=== PATIENT | female | born 1950 | race Caucasian/White ===

== ENCOUNTER → 2016-10-14 | Outpatient (CLI) | payer MEDICARE ==
--- NOTE | 2016-10-15 10:11 | MM ---
Reason for exam: screening (asymptomatic). Last mammogram was performed 2 years and 7 months ago. History: Patient is postmenopausal and had first child at age 35. Physical Findings: A clinical breast exam by your physician is recommended on an annual basis and results should be correlated with mammographic findings. MG Screening Mammo w CAD Bilateral CC and MLO view(s) were taken. Prior study comparison: March 27, 2014, mammogram, performed at [facility]. May 19, 2005, mammogram, performed at [facility]. There are scattered fibroglandular densities. Focal asymmetry right anterior depth. ASSESSMENT: Incomplete: need additional imaging evaluation, BI-RAD 0 RECOMMENDATION: Special view mammogram of the right breast. If lesion persists on supplemental views, image directed ultrasound is recommended. [facility] will attempt to contact patient to return for supplemental views and ultrasound if indicated.
== END | disposition home or self-care (01) ==
LOC: RADMAMWWP 11:52
PROVIDERS: ATTEND Family Medicine
DX: Z12.31 Encounter for screening mammogram for malignant neoplasm of breast (principal)

== ENCOUNTER → 2016-10-16 | Outpatient (CLI) | payer MEDICARE ==
--- NOTE | 2016-10-19 07:27 | MM ---
Reason for exam: additional evaluation requested from abnormal screening. Last mammogram was performed less than 1 month ago. History: Patient is postmenopausal and had first child at age 35. Physical Findings: Nurse did not find any significant physical abnormalities on exam. MG Work Up Mamm w CAD RT CC, MLO, LM, spot compression MLO, and spot compression CC view(s) were taken of the right breast. Prior study comparison: October 14, 2016, bilateral MG screening mammo w CAD. March 27, 2014, mammogram, performed at [facility]. The breast tissue is almost entirely fat. There is no discrete abnormality including area of concern. No significant new findings when compared with previous films. These results were verbally communicated with the patient and result sheet given to the patient on 10/16/16. ASSESSMENT: Benign, BI-RAD 2 RECOMMENDATION: Return to routine screening mammogram schedule for both breasts.
== END | disposition home or self-care (01) ==
LOC: RADMAMWWP 14:18
PROVIDERS: ATTEND Family Medicine
DX: R92.8 Other abnormal and inconclusive findings on diagnostic imaging of breast (principal)

== ENCOUNTER 2017-02-24 09:47 | Day surgery (SDC) | payer MEDICARE, OTHER ==
[2017-02-22 11:42] VITALS: BMI 32.0
[~2017-02-24 09:47] MED LIST: LACTATED RINGERS 1,000 ML IV SCH; LIDOCAINE 1% 20 ML VIAL (10MG/ML) FOR IV START INTRADERMA PRN
[2017-02-24 10:08] VITALS: TEMP 98
--- NOTE | 2017-02-24 11:26 | P.GSHP ---
History of Present Illness H&P Date: 02/24/17 Chief Complaint: GERD, dysphagia This a 66-year-old female referred from Dr. Ej Stephens. Patient has history of GERD and dysphagia. She presents today for EGD. Past Medical History Additional Past Medical History / Comment(s): migraines, osteoporosis, History of Any Multi-Drug Resistant Organisms: None Reported Past Surgical History: Section Additional Past Surgical History / Comment(s): D&C, edward cataracts Past Anesthesia/Blood Transfusion Reactions: No Reported Reaction Smoking Status: Former smoker - Past Family History Mother Family Medical History: Cancer Medications and Allergies Home Medications Medication Instructions Recorded Confirmed Type Cholecalciferol [Vitamin D3] 1,000 unit PO DAILY 02/22/17 02/24/17 History Ibuprofen [Advil] 200 mg PO Q8HR PRN 02/22/17 02/24/17 History Omeprazole [PriLOSEC] 20 mg PO HS 02/22/17 02/24/17 History Allergies Allergy/AdvReac Type Severity Reaction Status Date / Time No Known Allergies Allergy Verified 02/24/17 10:09 Surgical - Exam Vital Signs Temp Pulse Resp BP Pulse Ox 98 F 92 18 148/90 96 02/24/17 10:07 02/24/17 10:07 02/24/17 10:07 02/24/17 10:07 02/24/17 10:07 - General well developed, no distress - Eyes PERRL - ENT normal pinna - Neck no masses Assessment and Plan Assessment: GERD, dysphagia. We'll perform EGD.
[2017-02-24] MEDS ORDERED: LIDOCAINE 1% INJ 10MG/ML (20 ML MDV) ONE (11:30)
[2017-02-24] MEDS ORDERED: GLYCOPYRROLATE 0.2 MG/ML 2 ML VIAL ONE (11:30)
[2017-02-24] MEDS ORDERED: PROPOFOL 10 MG/ML 20 ML VIAL IV ONE (11:30)
--- NOTE | 2017-02-24 11:40 | P.OP ---
Date of Procedure: 02/24/17 Preoperative Diagnosis: GERD, dysphagia Postoperative Diagnosis: Antral gastritis Sliding hiatal hernia Esophagitis Procedure(s) Performed: EGD Anesthesia: MAC Surgeon: Micheal Prado Pathology: other (Antrum, esophagus) Condition: stable Disposition: PACU Description of Procedure: The patient's placed on the endoscopy table lateral position. She received IV sedation. The gastroscope placed oropharynx passed in the esophagus into the stomach. Scope was then placed through the pylorus. The first and second portion of the duodenum appeared normal. Scope was then brought back the antrum and this appeared mildly inflamed. A biopsies performed. Scope was unretroflexed and the remainder some appeared normal. There was a sliding hiatal hernia. The GE junction was at 37 cm. The distal esophagus appeared mildly inflamed a biopsies performed. The proximal esophagus. Normal. Scope was withdrawn for patient.
[2017-02-24 11:57] VITALS: BP 148/89; PULSE 80; RESP 18
== END 2017-02-24 13:07 | disposition home or self-care (01) ==
LOC: ORWHC2ENDO 09:47
PROVIDERS: ATTEND Surgery
DX: K21.0 Gastro-esophageal reflux disease with esophagitis (principal); K29.50 Unspecified chronic gastritis without bleeding; R13.10 Dysphagia, unspecified; K44.9 Diaphragmatic hernia without obstruction or gangrene; M81.0 Age-related osteoporosis without current pathological fracture; Z87.891 Personal history of nicotine dependence; Z79.899 Other long term (current) drug therapy
CPT/HCPCS: 43239; 88305; 88342; J2001; J2704

== ENCOUNTER → 2017-04-05 | Outpatient (CLI) | payer MEDICARE, OTHER ==
--- NOTE | 2017-04-05 11:14 | FL ---
EXAMINATION: Cervical and Thoracic Esophagram DATE OF EXAM: 04/05/2017 CLINICAL INDICATION: 66-year-old female with dysphagia, patient complains of coughing episodes while eating solid foods. COMPARISON: None Total Fluoroscopy Time: 2.9 minutes. Total images: 32 FINDINGS: During swallowing, an episode of mild silent aspiration is demonstrated. Also, there is mild hypertro phy of the cricopharyngeus seen during real-time fluoroscopy. Cervical and thoracic portions have a normal course and caliber and normal motility. The mucosa is normal and no persistent filling defect is encountered. There is a small to moderate-sized sliding hiatal hernia. A portion of this is felt to relate to the esophageal vestibule. There is moderate to severe gastroesophageal reflux demonstrated up to the upper third thoracic esoph ageal level with the patient turns from a left decubitus position to supine. IMPRESSION: 1. An episode of mild silent aspiration. Given patient's clinical symptoms of coughing episodes while eating, consider speech pathology consultation. 2. Small to moderate-sized sliding hiatal hernia with moderate to severe gastroesophageal reflux duri ng turning maneuvers. 3. Mild hypertrophy of the cricopharyngeus.
== END | disposition home or self-care (01) ==
LOC: RADFLWHC 09:51
PROVIDERS: ATTEND Surgery
DX: K44.9 Diaphragmatic hernia without obstruction or gangrene (principal); K21.9 Gastro-esophageal reflux disease without esophagitis; K22.8 Other specified diseases of esophagus
CPT/HCPCS: 74220

== ENCOUNTER → 2017-05-12 | Outpatient (CLI) | payer MEDICARE, OTHER | END | disposition home or self-care (01) | LOC: LABPAT 14:25 | PROVIDERS: ATTEND Anesthesiology | DX: Z01.818 Encounter for other preprocedural examination (principal) | CPT/HCPCS: 93005 ==

== ENCOUNTER 2017-05-20 09:31 | Day surgery (SDC) | payer MEDICARE, OTHER ==
[2017-05-12 23:02] VITALS: BMI 32.0
[~2017-05-20 09:31] MED LIST changes: +DEXAMETHASONE SOD PHOSPHATE 10 MG/ML 1 ML VIAL IV ONE; +HEPARIN SODIUM,PORCINE 5,000 UNIT/ML 1 ML VIAL SQ ONE; +MIDAZOLAM 2 MG/2 ML VIAL IV PRN; +SCOPOLAMINE 1.5MG/72HR PATCH TRANSDERM ONE; +ceFAZolin IN SWFI 2 GM/20 ML SYRINGE IVP ONE
--- NOTE | 2017-05-20 09:54 | P.GSHP ---
History of Present Illness H&P Date: 05/20/17 Chief Complaint: GERD This is a 66-year-old female referred from Dr. Ej Hunt. MThe patient has had long-standing problems with reflux esophagitis. The patient underwent recent EGD is found have evidence of esophagitis. Patient has been well informed on the procedure of laparoscopic Alexis fundoplication. The patient is aware the risk of the conversion to the open procedure, risk of injury to the stomach, liver and spleen. The patient is also a risk of recurrent GERD and dysphagia symptoms. The patient understands there is a postoperative diet of full liquids for 2 weeks after surgery. Past Medical History Past Medical History: Asthma, GERD/Reflux Additional Past Medical History / Comment(s): migraines, osteoporosis, History of Any Multi-Drug Resistant Organisms: None Reported Past Surgical History: Section Additional Past Surgical History / Comment(s): D&C, edward cataracts Past Anesthesia/Blood Transfusion Reactions: No Reported Reaction Additional Past Anesthesia/Blood Transfusion Reaction / Comment(s): no hx blood transfusion Additional Past Alcohol Use History / Comment(s): quit smoking 2010, smoked for 25 yrs, 1 PDP - Past Family History Mother Family Medical History: Cancer Medications and Allergies Home Medications Medication Instructions Recorded Confirmed Type Cholecalciferol [Vitamin D3] 1,000 unit PO DAILY 02/22/17 05/20/17 History Ibuprofen [Advil] 200 - 400 mg PO Q8HR PRN 02/22/17 05/20/17 History Omeprazole [PriLOSEC] 20 mg PO HS 02/22/17 05/20/17 History Acetaminophen Tab [Tylenol Tab] 1,000 mg PO Q6HR 05/20/17 05/20/17 History Allergies Allergy/AdvReac Type Severity Reaction Status Date / Time No Known Allergies Allergy Verified 05/20/17 09:50 Surgical - Exam Vital Signs Temp Pulse Resp BP Pulse Ox 97.3 F L 87 16 169/89 94 L 05/20/17 09:50 05/20/17 09:50 05/20/17 09:50 05/20/17 09:50 05/20/17 09:50 - General well developed, no distress - Eyes PERRL - ENT normal pinna - Neck no masses - Respiratory normal expansion - Cardiovascular Rhythm: regular - Abdomen Abdomen: soft, non tender Assessment and Plan Assessment: GERD. We'll perform laparoscopic Alexis fundal plication.
[2017-05-20] MEDS: ONDANSETRON 4 MG/2 ML VIAL IVP ONE ×2 (10:01→11:50)
[2017-05-20] MEDS ORDERED: KETAMINE 10 MG/ML 20 ML VIAL ONE (10:16)
[2017-05-20] MEDS ORDERED: ROCURONIUM BROMIDE 10 MG/ML 10 ML VIAL IV ONE (10:16)
[2017-05-20] MEDS ORDERED: LIDOCAINE 1% INJ 10MG/ML (20 ML MDV) ONE (10:16)
[2017-05-20] MEDS ORDERED: PROPOFOL 10 MG/ML 20 ML VIAL IV ONE (10:16)
[2017-05-20] MEDS ORDERED: NEOSTIGMINE 1 MG/ML 10 ML VIAL ONE (10:16)
[2017-05-20] MEDS ORDERED: GLYCOPYRROLATE 0.2 MG/ML 2 ML VIAL ONE (10:16)
[2017-05-20] MEDS ORDERED: fentaNYL (PF) 50 MCG/ML 2 ML AMP ONE (10:16)
[2017-05-20] MEDS ORDERED: ePHEDrine SULFATE/0.9% NACL/PF 50 MG/5 ML SYRINGE IV ONE (10:16)
[2017-05-20] MEDS ORDERED: MORPHINE SULFATE 10 MG/ML SYRINGE ONE (10:16)
[2017-05-20] MEDS ORDERED: MIDAZOLAM 2 MG/2 ML VIAL ONE (10:16)
[2017-05-20] MEDS ORDERED: SUCCINYLCHOLINE CHLORIDE 100 MG/5 ML SYR IV ONE (10:16)
[2017-05-20] MEDS ORDERED: SODIUM CHLORIDE 0.9% 50 ML with ceFAZolin 2,000 MG IV ONE ×2 (10:30)
[2017-05-20] MEDS ORDERED: BUPIVACAINE (PF) 0.25% 30 ML VIAL SQ ONE ×2 (10:42)
[2017-05-20] MEDS ORDERED: LACTATED RINGERS 1,000 ML IV ONE (11:17)
[2017-05-20] MEDS: HYDROmorphone 0.5 MG/0.5 ML SYRINGE IVP PRN ×4 (11:50→12:10)
--- NOTE | 2017-05-20 16:43 | FL ---
Single contrast esophagram EXAMINATION TYPE: FL esophagus cervic/pharynx DATE OF EXAM: 05/20/2017 4:31 PM COMPARISON: None post op Alexis. 50ml of omnipaque 350. 18 sec of fluoro used. 5 images submitted. CLINICAL HISTORY: Status post Jerzy fundoplication The patient ingested contrast without difficulty or delay. Noted are changes of Jerzy fundoplicatio n. There is no evidence for leak or obstruction. Small amount of residual contrast within the distal esophagus. IMPRESSION: Post-surgical change of Jerzy fundoplication without evidence for leak or obstruction.
[2017-05-20] MEDS: HYDROmorphone 2 MG/ML 1 ML SYRINGE IVP PRN ×3 (16:51→22:24)
[2017-05-20] MEDS: D5-0.45% NACL WITH KCL 20MEQ/L 1,000 ML IV SCH ×2 (19:03→22:11)
[2017-05-20] MEDS ORDERED: ACETAMINOPHEN TAB 325 MG TAB PO PRN (19:05)
[2017-05-20] MEDS ORDERED: ONDANSETRON 4 MG/2 ML VIAL IVP PRN (22:04)
[2017-05-20] MEDS: ONDANSETRON 4 MG/2 ML VIAL IVP PRN (22:15)
[2017-05-20] MEDS ORDERED: ONDANSETRON 4 MG/2 ML VIAL ONE (22:17)
[2017-05-21] MEDS: HYDROmorphone 2 MG/ML 1 ML SYRINGE IVP PRN ×3 (01:02→06:23)
[2017-05-21] MEDS: ONDANSETRON 4 MG/2 ML VIAL IVP PRN ×2 (03:48→10:24)
[2017-05-21] MEDS: D5-0.45% NACL WITH KCL 20MEQ/L 1,000 ML IV SCH ×2 (05:46→13:58)
[2017-05-21] MEDS ORDERED: ENOXAPARIN 40 MG/0.4 ML SYRINGE SQ SCH (09:00)
[2017-05-21] MEDS ORDERED: KETOROLAC 30 MG/ML 1 ML VIAL IVP STA (10:57)
[2017-05-21 12:47] VITALS: RESP 20
--- NOTE | 2017-05-21 12:49 | P.PN ---
Subjective Progress Note Date: 05/21/17 66-year-old female seen and evaluated. Patient reports having nausea sensation with dry heaves. Patient did have on May 20 FL esophagitis which showed no evidence of a leak or an obstruction. Patient states that she feels "achy" does not feel ready to be discharged patient is postop day 20 of May laparoscopic Alexis fundoplication for symptomatic esophageal reflux patient has a long-standing history of esophagitis. Recently underwent an EGD which showed evidence of esophagitis. Patient elected to undergo the procedure. Objective - Vital Signs Vital signs: Vital Signs Temp 97.5 F L 05/21/17 08:26 Pulse 67 05/21/17 08:26 Resp 19 05/21/17 08:26 BP 132/80 05/21/17 08:26 Pulse Ox 97 05/21/17 08:29 Intake & Output 05/20/17 05/21/17 05/21/17 18:59 06:59 18:59 Intake Total 1250 1910 230 Output Total 10 650 Balance 1240 1910 -420 Weight 79.379 kg Intake: IV 1250 970 D5-0.45% NaCl with KCl 970 20Meq/l 1,000 ml @ 125 mls/hr IV .Q8H [facility] Rx#: [id number] Intake, IV Titration 940 Amount Lactated Ringers 1,000 ml 940 As IV .[facility] Rx#: [id number] Oral 0 230 Output: Urine 650 Estimated Blood Loss 10 Other: Voiding Method Toilet # Voids 1 - Exam Physical exam 66-year-old female sitting up on the end of the bed states feels nauseated does have dry heaves Lungs adequate air movement bilaterally on room air sats are 95% no shortness of breath Heart S1-S2 audible regular Abdomen surgical sites dressings dry bowel tones present states urinating no difficulty no stool states nausea with dry heaves no active emesis Extremities Venodyne's on to the bilateral lower extremities Assessment and Plan Assessment: Impression Status post Alexis fundoplication for symptomatic esophageal reflux done on May 20 A recent EGD with evidence of esophagitis Long-standing symptomatic reflux esophagitis Plan Continue with the postop full liquid diet 2 weeks after surgery Anti-emetics as ordered Continue postop surgical care Prepped for discharge soon DVT and GI prophylaxis The above impression and plan of care have been discussed and directed by signing physician. Janessa Edmonds nurse practitioner acting as scribe for signing physician.
--- NOTE | 2017-05-21 15:43 | P.CONS ---
History of Present Illness - Reason for Consult Consult date: 05/21/17 Medical management - Chief Complaint s/p andrés fundoplication - History of Present Illness 66-year-old female who underwent elective Andrés fundoplication on 05/20/[address] Hunt was consulted for medical management. The patient is a history of gastroesophageal reflux disease, asthma, migraines, and osteoporosis. She is a former cigarette smoker and quit smoking in 2010 after smoking 1 pack per day for 25 years. The patient was seen and examined postoperatively at the bedside by Dr. Hunt. The patient states her pain is tolerable at this time. Her vital signs remain stable with a last blood pressure 132/80. She is afebrile with a temperature of 97.5. She is using bitmovin spirometer 10 times hour while awake and pulling volumes approximately 1500 mL. She denies shortness of breath. Denies chest pain or pressure. Denies nausea or vomiting. Denies any additional concerns at this time. Review of Systems GENERAL: Patient denies fever. Denies chills. EYES: Denies blurred vision. Denies vision changes. Denies eye pain. EARS, NOSE, MOUTH, & THROAT: Denies headache. Denies sore throat. Denies ear pain. RESPIRATORY: Denies cough. Denies shortness of breath. Denies sputum production. Denies hemoptysis. CARDIOVASCULAR: Denies chest pain or pressure. Denies palpitations. Denies arrhythmias. GASTROINTESTINAL: Positive for long-standing history of gastroesophageal reflux disease. Denies abdominal pain. Denies diarrhea. Denies constipation. Denies nausea. Denies vomiting. Denies blood in the stool. GENITOURINARY: Denies urinary frequency. Denies burning. Denies dysuria. Denies cloudy urine. Denies blood in the urine. MUSCULOSKELETAL: Denies myalgias. Denies joint swelling. Denies decreased range of motion beyond patients baseline. INTEGUMENTARY: Denies pruitis. Denies rash. PSYCHIATRIC: Denies suicidal or homicial ideations. ENDOCRINE: Denies weight change. Denies polydipsia. Denies polyuria. HEMATOLOGIC: Denies bleeding disorders. Past Medical History Past Medical History: Asthma, GERD/Reflux Additional Past Medical History / Comment(s): migraines, osteoporosis, History of Any Multi-Drug Resistant Organisms: None Reported Past Surgical History: Section Additional Past Surgical History / Comment(s): D&C, edward cataracts Past Anesthesia/Blood Transfusion Reactions: No Reported Reaction Additional Past Anesthesia/Blood Transfusion Reaction / Comm: no hx blood transfusion Smoking Status: Former smoker - Past Family History Mother Family Medical History: Cancer Medications and Allergies Home Medications Medication Instructions Recorded Confirmed Type Cholecalciferol [Vitamin D3] 1,000 unit PO DAILY 02/22/17 05/20/17 History Omeprazole [PriLOSEC] 20 mg PO HS 02/22/17 05/20/17 History Acetaminophen Tab [Tylenol] 1,000 mg PO Q6HR 05/20/17 05/20/17 History Docusate [Colace] 100 mg PO BID #20 capsule 05/21/17 Rx HYDROcodone/APAP 7.5-325MG [Coxsackie 1 each PO Q4H PRN #30 tab 05/21/17 Rx 7.5] Allergies Allergy/AdvReac Type Severity Reaction Status Date / Time No Known Allergies Allergy Verified 05/20/17 14:48 Physical Exam Vitals: Vital Signs Temp Pulse Pulse Resp BP Pulse Ox 05/21/17 08:29 97 05/21/17 08:26 97.5 F L 67 19 132/80 97 05/21/17 00:45 98.2 F 74 18 119/74 96 05/20/17 20:30 96.9 F L 80 16 116/59 94 L 05/20/17 17:06 96 20 148/83 93 L 05/20/17 17:03 97 05/20/17 16:06 104 H 20 136/89 88 L 05/20/17 14:35 85 20 129/76 93 L 05/20/17 14:05 60 19 122/71 91 L 05/20/17 13:35 76 19 116/61 91 L 05/20/17 13:20 93 18 137/81 91 L 05/20/17 13:05 72 18 122/87 91 L 05/20/17 12:50 98.4 F 77 18 138/85 91 L 05/20/17 12:16 88 16 143/80 97 05/20/17 12:01 90 16 158/83 100 05/20/17 11:45 96 16 151/80 96 05/20/17 11:34 97.2 F L 102 H 20 156/82 94 L Intake and Output 05/20/17 05/21/17 05/21/17 22:59 06:59 14:59 Intake Total 940 970 200 Output Total 650 Balance 940 970 -450 Intake: IV 970 D5-0.45% NaCl with KCl 970 20Meq/l 1,000 ml @ 125 mls/hr IV .Q8H [facility] Rx#: [id number] Intake, IV Titration 940 Amount Lactated Ringers 1,000 ml 940 As IV .[facility] Rx#: [id number] Oral 200 Output: Urine 650 Other: # Voids 1 Weight 79.379 kg GENERAL: This is a 66-year-old female in no apparent distress at the time of examination. Pleasant and cooperative. HEENT: Head is atraumatic, normocephalic. Pupils are equal, round, and reactive to light. Sclerae anicteric. Conjunctivae are clear. Mucus membranes of the mouth are moist. Neck is supple. RESPIRATORY: Clear to ausculation. No wheezes, rales, or rhonchi. No use of accessory muscles. Patient maintaining oxygen saturation greater than 92%. No chest wall tenderness is noted on palpation or with deep breathing. CARDIOVASCULAR: Regular rate and rhythm. S1 and S2 noted. No systolic or diastolic murmur auscultated. No JVD noted. No S3 or S4 noted. GASTROINTESTINAL: Surgical incision sites without signs of infection. No drainage noted. Abdomen soft and round. Tenderness noted upon palpation. Bowel sounds present 4 quadrants. INTEGUMENTARY: No cyanosis. No jaundice. No rashes noted. No cellulitis noted. EXTREMITIES: 2+ peripheral pulses. No evidence of peripheral edema. No calf tenderness noted. NEUROLOGIC: Cranial nerves II-XII intact. PSYCHIATRIC: Awake, alert, and oriented X 3. Appropriate affect. Intact judgement and insight. Assessment and Plan Plan: ASSESSMENT: Gastroesophageal reflux disease, s/p Andrés Fundoplication, POD #1 Asthma, no evidence of acute exacerbation History of migraines History of osteoporosis Obesity: BMI 32.0 History of nicotine dependence, in remission, patient quit smoking cigarettes in 2010 PLAN: -Continue postoperative surgical care per Dr. Prado -Activity as tolerated. Patient should be ambulated in the hallways -Pain control -Wean oxygen as tolerated to maintain oxygen saturations greater than 90% -Incentive spirometer 10 times an hour while awake -Home meds as appropriate -Monitor labs -DVT prophylaxis: Lovenox 40 mg subcu daily -Monitor vital signs and address as appropriate -Discharge planning: Patient to return home -Further recommendations pending patient's course -Patient is cleared for discharge from a medical standpoint when cleared by Dr. Prado Nurse practitioner note has been reviewed by physician. Signing provider agrees with the documented findings, assessment, and plan of care.
[2017-05-21 16:27] VITALS: BP 128/74; PULSE 71; TEMP 97.9
--- NOTE | 2017-05-28 08:15 | P.OP ---
Date of Procedure: 05/20/17 Preoperative Diagnosis: GERD Postoperative Diagnosis: GERD Procedure(s) Performed: Laproscopic scopic Alexis fundal plication Anesthesia: JENNIFER Surgeon: Micheal Prado Estimated Blood Loss (ml): 5 Pathology: none sent Condition: stable Disposition: PACU Description of Procedure: The patient was placed on the operating table in the supine position. The patient received general anesthesia. And was placed in dorsal lithotomy position. The patient was prepped and draped in the usual sterile fashion. The skin incision sites were anesthetized with 1% local Xylocaine. The skin was incised in the left periumbilical area and then using a blade less 5 mm trocar under direct visualization panel cavity was entered. After adequate insufflation the laparoscope was then placed into the peritoneal cavity. Next a 5 mm trochars placed in the right epigastric position. Another 5 millimeter trocar the right lateral position. Another 5 millimeter trocar in the left lateral position a 5 mm trocar is placed in the left epigastric position. And then the initial 5 mm trocar was exchanged for a 10 mm trocar. The left lateral lobe liver was retracted. The hernia was seen. The crural defect was then dissected using the Harmonic scissors device. A 360 crural dissection was performed the esophagus stomach was reduced back into the peritoneal Cavity. The crural defect was then closed using 2-0 Ethibond suture. Next the fundus of the stomach was mobilized using the [place] scissors device. and then a 58-Danish bougie dilator was placed oropharynx passed into the esophagus and stomach the fundal plication wrap was then performed by grasping the fundus posteriorly and bringing it around the esophagus and stomach fundoplication was then performed using 2-0 Ethibond suture. Care was taken that the fundal location rested over top of the intra-abdominal esophagus. There was no injury seen to the stomach or esophagus. The dilator was then withdrawn. The abdomen was irrigated there is no bleeding seen. The trochars were then withdrawn and then skin incision sites were closed using 3-0 Monocryl suture Steri-Strips are applied. Patient thought procedure well and sent to recovery room in stable condition.
== END 2017-05-21 18:32 | disposition home or self-care (01) ==
LOC: OR 09:31 → 6PED 11:21 → OR 05-21 18:32
PROVIDERS: ATTEND Surgery
DX: K21.0 Gastro-esophageal reflux disease with esophagitis (principal); J45.909 Unspecified asthma, uncomplicated; M81.0 Age-related osteoporosis without current pathological fracture; E66.9 Obesity, unspecified; Z68.32 Body mass index [BMI] 32.0-32.9, adult; Z79.899 Other long term (current) drug therapy; F17.211 Nicotine dependence, cigarettes, in remission
CPT/HCPCS: 94760; 74210; 43280; J2250; J1170 ×3; J1644; J1100; J2710; J2270; J2405 ×2; J2001; J1650; J3010; J1885; J0690; J0330; J2704

== ENCOUNTER → 2018-10-19 | Day surgery (SDC) | payer MEDICARE, OTHER ==
[2018-10-17 11:22] VITALS: BMI 32.5
[~2018-10-19] MED LIST changes: -DEXAMETHASONE SOD PHOSPHATE 10 MG/ML 1 ML VIAL IV ONE; -HEPARIN SODIUM,PORCINE 5,000 UNIT/ML 1 ML VIAL SQ ONE; -MIDAZOLAM 2 MG/2 ML VIAL IV PRN; +PROPOFOL 10 MG/ML 20 ML VIAL IV ONE; -SCOPOLAMINE 1.5MG/72HR PATCH TRANSDERM ONE; -ceFAZolin IN SWFI 2 GM/20 ML SYRINGE IVP ONE
[2018-10-19 09:49] VITALS: TEMP 97.8
--- NOTE | 2018-10-19 10:01 | P.GSHP ---
History of Present Illness H&P Date: 10/19/18 Chief Complaint: Constipation, history of colonic Polyp This is a 68-year-old female who presents today for colonoscopy. Patient history of constipation. She is also had previous colon polyps on colonoscopy. Past Medical History Past Medical History: Asthma, GERD/Reflux, Hypertension Additional Past Medical History / Comment(s): migraines, osteoporosis, History of Any Multi-Drug Resistant Organisms: None Reported Past Surgical History: Section, Hernia Repair Additional Past Surgical History / Comment(s): D&C, edward cataracts SURGERY WITH IMPLANTS Past Anesthesia/Blood Transfusion Reactions: No Reported Reaction Additional Past Anesthesia/Blood Transfusion Reaction / Comment(s): no hx blood transfusion Smoking Status: Former smoker - Past Family History Mother Family Medical History: Cancer Medications and Allergies Home Medications Medication Instructions Recorded Confirmed Type Cholecalciferol [Vitamin D3 (25 1,000 unit PO DAILY 02/22/17 10/17/18 History Mcg = 1000 Iu)] Acetaminophen Tab [Tylenol] 1,000 mg PO Q6HR 05/20/17 10/17/18 History Docusate [Colace] 100 mg PO BID PRN 10/17/18 10/17/18 History Losartan [Cozaar] 50 mg PO DAILY 10/17/18 10/17/18 History Allergies Allergy/AdvReac Type Severity Reaction Status Date / Time pollen extracts Allergy CONGESTION Verified 10/19/18 09:40 Surgical - Exam Vital Signs Temp Pulse Resp BP Pulse Ox 97.8 F 94 14 160/89 99 10/19/18 09:45 10/19/18 09:45 10/19/18 09:45 10/19/18 09:45 10/19/18 09:45 - General well developed, well nourished, no distress - Eyes PERRL - ENT normal pinna - Neck no masses - Respiratory normal expansion - Cardiovascular Rhythm: regular - Abdomen Abdomen: soft, non tender Assessment and Plan Assessment: History of colonic polyp, constipation. We'll perform colonoscopy.
--- NOTE | 2018-10-19 10:21 | P.OP ---
Date of Procedure: 10/19/18 Preoperative Diagnosis: Constipation Colon polyps Postoperative Diagnosis: External hemorrhoids Diverticulosis Rectal polyp Procedure(s) Performed: Colonoscopy Anesthesia: MAC Surgeon: Micheal Prado Pathology: other (Rectal polyp) Condition: stable Disposition: PACU Description of Procedure: The patient's placed on the endoscopy table lateral position. She received IV sedation. The digital rectal exam was performed which revealed several hemorrhoids. The flexible colonoscope was then placed patient anus and passed throughout the entire colon. The ileocecal valve visualized. The cecum, ascending and transverse colon appeared normal. In the descending; there is moderate diverticular changes. Scope was then brought back the rectum and a polyp was seen. This removed with the cold forcep and snare. Scope was withdrawn for patient.
[2018-10-19 10:22] VITALS: RESP 16
[2018-10-19 10:41] VITALS: BP 130/86; PULSE 63
== END ==
LOC: ORWHC2ENDO 09:25
PROVIDERS: ATTEND Surgery
DX: K62.1 Rectal polyp (principal); K57.30 Diverticulosis of large intestine without perforation or abscess without bleeding; K64.4 Residual hemorrhoidal skin tags; I10 Essential (primary) hypertension; J45.909 Unspecified asthma, uncomplicated; K21.9 Gastro-esophageal reflux disease without esophagitis; K59.00 Constipation, unspecified; M81.0 Age-related osteoporosis without current pathological fracture; Z79.899 Other long term (current) drug therapy; Z86.010 Personal history of colon polyps; Z87.891 Personal history of nicotine dependence; Z98.42 Cataract extraction status, left eye; Z98.41 Cataract extraction status, right eye; Z96.1 Presence of intraocular lens
CPT/HCPCS: 45380; 45385; 88305

== ENCOUNTER 2021-03-17 08:29 | Day surgery (SDC) | payer MEDICARE, OTHER ==
[2021-03-13 12:11] VITALS: BMI 31.3
[~2021-03-17 08:29] MED LIST changes: -LIDOCAINE 1% 20 ML VIAL (10MG/ML) FOR IV START INTRADERMA PRN; -PROPOFOL 10 MG/ML 20 ML VIAL IV ONE
[2021-03-17 09:11] VITALS: TEMP 97.7
[2021-03-17] MEDS ORDERED: LACTATED RINGERS 1,000 ML IV ONE ×2 (09:18)
[2021-03-17] MEDS ORDERED: GLUCAGON 1 MG/ML VIAL ONE (09:27)
[2021-03-17] MEDS ORDERED: TRIMETHOBENZAMIDE 100 MG/ML 2 ML VIAL IM ONE (09:27)
[2021-03-17] MEDS ORDERED: PROPOFOL 10 MG/ML 20 ML VIAL IV ONE (09:27)
[2021-03-17] MEDS ORDERED: LIDOCAINE 1% INJ 10MG/ML (20 ML MDV) ONE (09:27)
--- NOTE | 2021-03-17 09:30 | P.GSHP ---
History of Present Illness H&P Date: 03/17/21 Chief Complaint: GI bleed This is a 70-year-old female who presents today for colonoscopy. She's had issues with rectal bleeding. Past Medical History Past Medical History: Asthma, GERD/Reflux, Hypertension Additional Past Medical History / Comment(s): migraines, osteoporosis, postive cologuard, hemorrhoids History of Any Multi-Drug Resistant Organisms: None Reported Past Surgical History: Section, Hernia Repair Additional Past Surgical History / Comment(s): D&C, edward cataracts SURGERY WITH IMPLANTS Past Anesthesia/Blood Transfusion Reactions: No Reported Reaction Additional Past Anesthesia/Blood Transfusion Reaction / Comment(s): no hx blood transfusion Smoking Status: Former smoker - Past Family History Mother Family Medical History: Cancer Medications and Allergies Home Medications Medication Instructions Recorded Confirmed Type Cholecalciferol [Vitamin D3 (25 1,000 unit PO DAILY 02/22/17 03/17/21 History Mcg = 1000 Iu)] Losartan [Cozaar] 50 mg PO DAILY 10/17/18 03/17/21 History Allergies Allergy/AdvReac Type Severity Reaction Status Date / Time No Known Allergies Allergy Verified 03/17/21 09:05 Surgical - Exam Vital Signs Temp Pulse BP Pulse Ox 97.7 F 86 153/90 95 03/17/21 09:10 03/17/21 09:10 03/17/21 09:10 03/17/21 09:10 - General well developed, well nourished, no distress - Eyes PERRL - ENT normal pinna - Neck no masses - Respiratory normal expansion - Cardiovascular Rhythm: regular - Abdomen Abdomen: soft, non tender Assessment and Plan Assessment: History of rectal bleeding. We'll perform colonoscopy.
--- NOTE | 2021-03-17 09:48 | P.OP ---
Date of Procedure: 03/17/21 Preoperative Diagnosis: Rectal bleeding Postoperative Diagnosis: External hemorrhoids Diverticulosis Procedure(s) Performed: Colonoscopy Anesthesia: MAC Surgeon: Micheal Prado Pathology: none sent Condition: stable Disposition: PACU Description of Procedure: The patient's placed on the endoscopy table in the lateral position. She received IV sedation. Digital rectal exam was performed which revealed external hemorrhoids. The flexible colonoscope was then placed patient anus and passed throughout the entire colon. The ileocecal valve was visualized. Cecum, ascending and transverse colon appeared normal. In the descending and sigmoid colon there was moderate diverticulosis. Scope was brought back the rectum this appeared normal. Scope was withdrawn for patient. His present the patient's previous rectal bleeding was due to external hemorrhoids or diverticulosis., However on the scope today there was no evidence of any GI bleed.
[2021-03-17 09:51] VITALS: RESP 16
[2021-03-17 10:06] VITALS: BP 155/87; PULSE 72
== END 2021-03-17 11:17 | disposition home or self-care (01) ==
LOC: ORWHC2ENDO 08:29
PROVIDERS: ATTEND Surgery
DX: K64.4 Residual hemorrhoidal skin tags (principal); K57.90 Diverticulosis of intestine, part unspecified, without perforation or abscess without bleeding; I10 Essential (primary) hypertension; K21.9 Gastro-esophageal reflux disease without esophagitis; J45.909 Unspecified asthma, uncomplicated; Z87.891 Personal history of nicotine dependence; Z79.899 Other long term (current) drug therapy
CPT/HCPCS: 45378; J3250; J2001; J2704

== ENCOUNTER → 2022-03-03 | Outpatient (CLI) | payer MEDICARE ==
--- NOTE | 2022-03-04 17:35 | MM ---
Reason for Exam: Screening (asymptomatic). Last mammogram was performed 5 year(s) and 4 month(s) ago. Patient History: Menarche at age 14. First Full-Term at age 35. Late child-bearing (after 30). Postmenopausal. Patient has history of breast feeding. Mother had ovarian cancer, age 57. Risk Values: Erin 5 year model risk: 2.4%. NCI Lifetime model risk: 6.9%. Prior Study Comparison: 03/27/2014 Screening Mammogram, [facility]. 10/14/2016 Bilateral Screening Mammogram, [facility]. 10/16/2016 Right Diagnostic Mammogram, [facility]. Tissue Density: There are scattered fibroglandular densities. Findings: Analyzed By CAD. Few scattered small stable nodules are present. No suspicious groups of microcalcifications, spiculated or lobular masses, architectural distortion or other secondary signs of malignancy are mammographically apparent. Overall Assessment: Benign, BI-RAD 2 Management: Screening Mammogram of both breasts in 1 year. A negative mammogram report should not preclude additional follow up of suspicious palpable abnormalities. Patient should continue monthly self breast exam. A clinical breast exam by your physician is recommended on an annual basis and results should be correlated with mammographic findings. Electronically signed and approved by: Pawan Holder D.O. Radiologis
== END | disposition home or self-care (01) ==
LOC: RADMAMWWP 16:46
PROVIDERS: ATTEND Family Medicine
DX: Z12.31 Encounter for screening mammogram for malignant neoplasm of breast (principal)
CPT/HCPCS: 77063; 77067

== ENCOUNTER → 2023-03-04 | Outpatient (CLI) | payer MEDICARE ==
--- NOTE | 2023-03-12 10:41 | MM ---
Reason for Exam: Screening (asymptomatic). Last screening mammogram was performed 12 month(s) ago. Patient History: Menarche at age 14. First Full-Term at age 35. Late child-bearing (after 30). Postmenopausal. Patient has history of breast feeding. Maternal grandmother had ovarian cancer at or over age 50. Mother had ovarian cancer, age 57. Risk Values: Erin 5 year model risk: 2.4%. NCI Lifetime model risk: 6.6%. Prior Study Comparison: 03/27/2014 Screening Mammogram, [facility]. 10/14/2016 Bilateral Screening Mammogram, [facility]. 10/16/2016 Right Diagnostic Mammogram, [facility]. 03/03/2022 Bilateral MG 3D screening mammo w/cad, [facility]. Tissue Density: The breast tissue is almost entirely fat. Findings: Analyzed By CAD. There is no suspicious group of microcalcifications or new suspicious mass. Overall Assessment: Negative, BI-RAD 1 Management: Screening Mammogram of both breasts in [address] [facility] will attempt to contact patient to return for supplemental views and ultrasound if indicated. Patient should continue monthly self-breast exams. A clinical breast exam by your physician is recommended on an annual basis. This exam should not preclude additional follow-up of suspicious palpable abnormalities. Note on Erin scores and lifetime risk: 1. A Erin score greater than 3% is considered moderate risk. If this is the case, consider specialist referral to assess eligibility for a risk reducing agent. 2. If overall lifetime risk for the development of breast cancer is 20% or higher, the patient may qualify for future screening with alternating mammogram and breast MRI. Electronically signed and approved by: Quincy Oquendo DO
== END | disposition home or self-care (01) ==
LOC: RADMAMWWP 13:04
PROVIDERS: ATTEND Family Medicine
DX: Z12.31 Encounter for screening mammogram for malignant neoplasm of breast (principal); Z78.0 Asymptomatic menopausal state
CPT/HCPCS: 77063; 77067

== ENCOUNTER → 2023-11-24 | Outpatient (CLI) | payer MEDICARE ==
[2023-11-24 19:18] LABS: HCT 39.4 % (37.2-46.3); HGB 13.3 g/dL (12.0-15.0); MCH 30.8 pg (27.0-32.0); MCHC 33.8 g/dL (32.0-37.0); MCV 91.2 FL (80.0-97.0); Mean Platelet Volume 12.1 FL (9.5-12.2); NRBC Per 100 WBC 0 X 10*3/uL (0.00-0.01); Platelet Count 300 X 10*3/uL (140-440); RBC 4.32 X 10*6/uL (4.10-5.20); RDW 13.7 % (11.5-14.5); WBC 7.52 X 10*3/uL (4.50-10.00)
[2023-11-24 19:54] LABS: Erythrocyte Sedimentation Rate 17 mm/Hr (0-30)
[2023-11-25 04:42] LABS: Streptolysin O Ab(ASO) 71 IntlUnit/L (0-200)
[2023-11-25 04:54] LABS: Rheumatoid Factor, Qnt 15 IU/mL (0-15)
[2023-11-25 06:07] LABS: Cyclic Citrull Pep IgG Unit <1.5 U/mL (<=3.9); Cyclic Citrullinated Pep IgG Negative
[2023-11-25 11:09] LABS: HLA B27 NEGATIVE
== END | disposition home or self-care (01) ==
LOC: LABWHC1 15:50
PROVIDERS: ATTEND Orthopaedic Surgery Orthopaedic Surgery of the Spine
DX: M13.841 Other specified arthritis, right hand (principal); M79.644 Pain in right finger(s)
CPT/HCPCS: 36415; 84443; 85027; 85652; 86038; 86060; 86140; 86200; 86431; 86618; 86812

== ENCOUNTER → 2024-03-06 | Outpatient (CLI) | payer MEDICARE ==
--- NOTE | 2024-03-07 08:29 | MM ---
Reason for Exam: Screening (asymptomatic). Last screening mammogram was performed 12 month(s) ago. Patient History: Menarche at age 14. First Full-Term at age 35. Late child-bearing (after 30). Postmenopausal. Patient has history of breast feeding. Maternal grandmother had ovarian cancer at or over age 50. Mother had ovarian cancer, age 57. Risk Values: Erin 5 year model risk: 2.4%. NCI Lifetime model risk: 6.3%. Prior Study Comparison: 10/16/2016 Right Diagnostic Mammogram, [facility]. 03/03/2022 Bilateral MG 3D screening mammo w/cad, [facility]. 03/04/2023 Bilateral MG 3D screening mammo w/cad, [facility]. Tissue Density: The breasts are almost entirely fatty. Findings: Analyzed By CAD. Right breast: There is no suspicious group of microcalcifications or new suspicious mass. Left breast: There is no suspicious group of microcalcifications or new suspicious mass. Overall Assessment: Negative, BI-RAD 1 Management: Screening Mammogram of both breasts in [address] [facility] will attempt to contact patient to return for supplemental views and ultrasound if indicated. Patient should continue monthly self-breast exams. A clinical breast exam by your physician is recommended on an annual basis. This exam should not preclude additional follow-up of suspicious palpable abnormalities. Note on Erin scores and lifetime risk: 1. A Erin score greater than 3% is considered moderate risk. If this is the case, consider specialist referral to assess eligibility for a risk reducing agent. 2. If overall lifetime risk for the development of breast cancer is 20% or higher, the patient may qualify for future screening with alternating mammogram and breast MRI. [facility], , 03/07/2024 8:27 AM. Electronically signed and approved by: Quincy Oquendo DO
== END | disposition home or self-care (01) ==
LOC: RADMAMWWP 15:49
PROVIDERS: ATTEND Family Medicine
CPT/HCPCS: 77063; 77067

== ENCOUNTER 2024-07-29 16:13 | Emergency (ER) | payer MEDICARE ==
--- NOTE | 2024-07-29 16:37 | ED ---
Extremity Problem HPI - General Chief complaint: Extremity Problem,Nontraumatic Stated complaint: R foot/leg swelling Time Seen by Provider: 07/29/24 16:28 Source: patient, RN notes reviewed Mode of arrival: ambulatory Limitations: no limitations - History of Present Illness Initial comments: This is a 73-year-old female presenting with right lower extremity swelling/pain (7/10) x 6 days. Patient states right foot swelling started suddenly without known cause or recent trauma. States swelling pain has since moved superiorly towards her knee since initial symptoms began. Endorses pain with walking and no pain when supine. Endorses use of Tylenol at 1406 today. Denies fever, chills, chest pain, dyspnea, history of blood clots. Onset/Timin -: days(s) Location: right, lower extremity History of Same: No Radiation: proximal Severity scale (1-10): 7 Worsens with: weight bearing, walking, palpation Associated Symptoms: denies other symptoms - Related Data Home Medications Medication Instructions Recorded Confirmed Cholecalciferol [Vitamin D3 (25 1,000 unit PO DAILY 02/22/17 03/17/21 Mcg = 1000 Iu)] Losartan [Cozaar] 50 mg PO DAILY 10/17/18 03/17/21 Allergies Allergy/AdvReac Type Severity Reaction Status Date / Time No Known Allergies Allergy Verified 07/29/24 16:28 Review of Systems ROS Statement: Those systems with pertinent positive or pertinent negative responses have been documented in the HPI. ROS Other: All systems not noted in ROS Statement are negative. Past Medical History Past Medical History: Asthma, GERD/Reflux, Hypertension Additional Past Medical History / Comment(s): migraines, osteoporosis, postive cologuard, hemorrhoids History of Any Multi-Drug Resistant Organisms: None Reported Past Surgical History: Section, Hernia Repair Additional Past Surgical History / Comment(s): D&C, edward cataracts SURGERY WITH IMPLANTS Past Anesthesia/Blood Transfusion Reactions: No Reported Reaction Additional Past Anesthesia/Blood Transfusion Reaction / Comment(s): no hx blood transfusion Past Psychological History: No Psychological Hx Reported Smoking Status: Former smoker - Past Family History Mother Family Medical History: Cancer General Exam Limitations: no limitations General appearance: alert, in no apparent distress Head exam: Present: atraumatic, normocephalic, normal inspection Eye exam: Present: normal appearance, PERRL, EOMI. Absent: scleral icterus, conjunctival injection, periorbital swelling ENT exam: Present: normal exam, mucous membranes moist Neck exam: Present: normal inspection. Absent: tenderness, meningismus, lymphadenopathy Respiratory exam: Present: normal lung sounds bilaterally. Absent: respiratory distress, wheezes, rales, rhonchi, stridor Cardiovascular Exam: Present: regular rate, normal rhythm, normal heart sounds. Absent: systolic murmur, diastolic murmur, rubs, gallop, clicks GI/Abdominal exam: Present: soft, normal bowel sounds. Absent: distended, tenderness, guarding, rebound, rigid Extremities exam: Present: normal inspection, full ROM, tenderness (Positive dorsal right foot tenderness without crepitus, ecchymosis, deformity. Positive plantar fascia tenderness.), normal capillary refill, calf tenderness (Positive right Homans' sign), other (Distal RLE neurovascular and motor function intact. Dorsalis pedis pulse +2. Minor RLE edema extending to knee with slight darkening and pitting). Absent: pedal edema, joint swelling Back exam: Present: normal inspection Neurological exam: Present: alert, oriented X3, CN II-XII intact Psychiatric exam: Present: normal affect, normal mood Skin exam: Present: warm, dry, intact, normal color. Absent: rash Course Vital Signs 07/29/24 16:24 Temperature 98 F Pulse Rate 73 Respiratory 17 Rate Blood Pressure 160/109 O2 Sat by Pulse 95 Oximetry Medical Decision Making - Medical Decision Making Was pt. sent in by a medical professional or institution (, PA, TRAILER STEERER, urgent care, hospital, or prison...) When possible be specific @ -[No] Did you speak to anyone other than the patient for history (EMS, parent, family, police, friend...)? What history was obtained from this source @ -[No] Did you review nursing and triage notes (agree or disagree)? Why? @ -[I reviewed and agree with nursing and triage notes] Were old charts reviewed (outside hosp., previous admission, EMS record, old EKG, old radiological studies, urgent care reports/EKG's, prison records)? Report findings @ -[No old charts were reviewed] Differential Diagnosis (chest pain, altered mental status, abdominal pain women, abdominal pain men, vaginal bleeding, weakness, fever, dyspnea, syncope, h eadache, dizziness, GI bleed, back pain, seizure, CVA, palpatations, mental health, musculoskeletal)? @ -Differential Musculoskeletal Muscular strain, contusion, ligament sprain, fracture, arthritis, septic arthritis, bursitis, cellulitis, muscle spasm, nerve compression, DVT, arterial occlusion, herpes zoster, electrolyte abnormality, tumor.... This is not meant to be in all inclusive list EKG interpreted by me (3pts min.). @ -Not done X-rays interpreted by me (1pt min.). @ -[None done] CT interpreted by me (1pt min.). @ -[None done] U/S interpreted by me (1pt. min.). @ -[None done] What testing was considered but not performed or refused? (CT, X-rays, U/S, labs)? Why? @ -[None] What meds were considered but not given or refused? Why? @ -[None] Did you discuss the management of the patient with other professionals (professionals i.e. , PA, TRAILER STEERER, lab, RT, psych nurse, high school social science teacher, self defense instructor, teacher, loss prevention officer, shoe caser)? Give summary @ -[No] Was smoking cessation discussed for >3mins.? @ -[No] Was critical care preformed (if so, how long)? @ -[No] Were there social determinants of health that impacted care today? How? (Homelessness, low income, unemployed, alcoholism, drug addiction, transportation, low edu. Level, literacy, decrease access to med. care, halfway, rehab)? @ -[No] Was there de-escalation of care discussed even if they declined (Discuss DNR or withdrawal of care, Hospice)? DNR status @ -[No] What co-morbidities impacted this encounter? (DM, HTN, Smoking, COPD, CAD, Cancer, CVA, ARF, Chemo, Hep., AIDS, mental health diagnosis, sleep apnea, morbid obesity)? @ -[None] Was patient admitted / discharged? Hospital course, mention meds given and route, prescriptions, significant lab abnormalities, going to OR and other pertinent info. @ -[hospital course] Undiagnosed new problem with uncertain prognosis? @ -[No] Drug Therapy requiring intensive monitoring for toxicity (Heparin, Nitro, Insulin, Cardizem)? @ -[No] Were any procedures done? @ -[No] Diagnosis/symptom? @ -[default] Acute, or Chronic, or Acute on Chronic? @ -Acute Uncomplicated (without systemic symptoms) or Complicated (systemic symptoms)? @ -Uncomplicated Side effects of treatment? @ -[No] Exacerbation, Progression, or Severe Exacerbation? @ -[No] Poses a threat to life or bodily function? How? (Chest pain, [place], MA, pneumonia, PE, COPD, DKA, ARF, appy, cholecystitis, CVA, Diverticulitis, Homicidal, Suicidal, threat to staff... and all critical care pts) @ -[No] Disposition Clinical Impression: Plantar fasciitis of right foot Disposition: HOME SELF-CARE Condition: Good Instructions (If sedation given, give patient instructions): Plantar Fasciitis (ED), Plantar Fasciitis Exercises (ED) Additional Instructions: Follow-up with primary care for ongoing evaluation and management. Tylenol every 4 hours for pain. Is patient prescribed a controlled substance at d/c from ED?: No Referrals: Ej Hunt DO [Primary Care Provider] - 1-2 days Time of Disposition: 19:02
--- NOTE | 2024-07-29 17:36 | XR ---
EXAMINATION TYPE: XR foot complete RT DATE OF EXAM: 07/29/2024 5:31 PM COMPARISON: None. CLINICAL INDICATION: Female, 73 years old with history of Pain, swelling, pain TECHNIQUE: XR foot complete RT XX views were obtained. FINDINGS: There is no acute fracture/dislocation evident. The joint spaces appear within normal limits. The o verlying soft tissue appears unremarkable. Small plantar calcaneal spur noted. IMPRESSION: No acute fracture or dislocation. [facility], , 07/29/2024 5:33 PM
--- NOTE | 2024-07-29 17:37 | XR ---
Comments nice used to try to put some surrounding the really sounds delayed fashionli EXAMINATION TYP E: XR tibia fibula RT DATE OF EXAM: 07/29/2024 CLINICAL HISTORY: pain TECHNIQUE: AP and lateral images of the right tibia and fibula are obtained. COMPARISON: None. FINDINGS: There is no acute fracture/dislocation evident. The joint spaces appear within normal duncan its. The overlying soft tissue appears unremarkable. IMPRESSION: There is no acute fracture or dislocation seen. ICD 10 NO FRACTURE, INITIAL EVALUATION [facility], , 07/29/2024 5:35 PM
--- NOTE | 2024-07-29 18:57 | US ---
EXAMINATION TYPE: US venous doppler duplex LE RT DATE OF EXAM: 07/29/2024 6:22 PM COMPARISON: NONE CLINICAL INDICATION: Female, 73 years old with history of pain; No hx of DVT. Pain started 5 days ago . TECHNIQUE: The lower extremity deep venous system is examined utilizing real time linear array sonog theodore with graded compression, color doppler sonography, and spectral doppler. SIDE PERFORMED: Right FINDINGS: VESSELS IMAGED: Common Femoral Vein Deep Femoral Vein Greater Saphenous Vein * Femoral Vein Popliteal Vein Small Saphenous Vein * Proximal Calf Veins (* superficial vessels) Right Leg: No evidence of DVT, Color Doppler imaging shows patency of the vessels. Spectral waveform s are within normal limits. IMPRESSION: No evidence of deep vein thrombosis of the right lower extremity. [facility], , 07/29/2024 6:55 PM
[2024-07-29] MEDS: Acetaminophen-Codeine 300-30mg TAB PO STA (19:22)
[2024-07-29] MEDS: ACET/COD 300 MG/30 MG STARTER PACK 6 TAB BTL PO STA (19:22)
[2024-07-29 19:34] VITALS: BP 162/89; PULSE 53; RESP 16; TEMP 98.1
== END 2024-07-29 19:34 | disposition home or self-care (01) ==
LOC: EC 16:13
DX: M72.2 Plantar fascial fibromatosis (principal); Z87.891 Personal history of nicotine dependence
CPT/HCPCS: 99283